=== PATIENT | female | born 1940 | race Caucasian/White ===

== ENCOUNTER → 2016-06-23 | Outpatient (CLI) | payer MEDICARE, OTHER ==
[~2016-06-23] MED LIST: AMLO5TAB2 PO; ASP81TEC PO; BLAC80CA PO; CALC-787 PO; CHOL10003 PO; DIPH-450 PO; E400C PO; FURO40TA4 PO; GLUC-113 PO; HYDR1CAP2 PO; LISI10TA PO; LORA0.5T PO; LVT.088T PO; LVT.1T PO; METF-380 PO; NAPR250T2 PO; OMEG-12 PO; PRAV80TA2 PO; SIMV40TA4 PO; TRAM50TA2 PO; UBID100C17 PO; [UNRECOGNIZED DRUG - OTHER]
--- NOTE | 2016-06-25 16:17 | ECHOCARDIOGRAPHY REPORT ---
PROCEDURE PHYSICIAN: NELSY OBRIEN DATE OF PROCEDURE: 06/23/2016 TWO DIMENSIONAL ECHOCARDIOGRAM REPORT PRIMARY PHYSICIAN: OTHER PHYSICIAN: REFERRING PHYSICIAN: Dr. Schmidt and CELINA Novak ORDERING PHYSICIAN: INDICATION FOR THE PROCEDURE: Coronary artery disease. MEASUREMENTS DERIVED VALUES LV DIAMETER (LAX) NORMALS NORMALS Diastolic 4.1 (3.6-5.2) Eject. Fract. 50% (60%+/-6%) Systolic (2.3-3.9) Diastolic Vol. % Shortening (0.22-0.42) Systolic Vol. Aortic Root IVS THICKNESS Diastolic 1.2 (0.6-1.1) LVPW THICKNESS Diastolic 1.2 (0.6-1.1) LA DIAMETER Systolic 3.5 (2.1-3.7) FINDINGS: 1. Technically poor quality study. 2. The left ventricle is normal in size. Endocardium was not well visualized in all segments. Systolic function appeared to be preserved with estimated ejection fraction 50%. Cannot comment on segmental wall motion. 3. The left atrium appeared to be normal size, the previous study in 2014 showed a large left atrium. 4. The right atrium and right ventricle were not well visualized on this study. 5. Mitral valve is normal in morphology with mild mitral regurgitation noted by color Doppler flow. No mitral valve prolapse or stenosis. 6. Aortic valve was not well visualized. There is no significant aortic stenosis or regurgitation seen. 7. Tricuspid valve is normal in morphology with mild tricuspid regurgitation noted by color Doppler flow. Doppler across tricuspid valve estimated pulmonary artery pressure of 19+ right atrial pressure. 8. Pulmonic valve is functioning normally. 9. No pericardial effusion. IN CONCLUSION: 1. Normal left ventricular size, endocardium was not well visualized in all segments. Overall, systolic function appeared to be preserved with estimated ejection fraction of 50%. 2. Mild mitral and tricuspid regurgitation. 3. Estimated pulmonary artery pressure of 25 mmHg. 4. Overall, it is a suboptimal study. Job ID: [id number] Dictated Date: 06/24/2016 12:46:46 Sales Program Coordinator Date: 06/25/2016 16:14:03 / pamela
== END ==
LOC: CARD 10:03
PROVIDERS: ATTEND Physician Assistant
DX: I25.10 Atherosclerotic heart disease of native coronary artery without angina pectoris (principal); I65.23 Occlusion and stenosis of bilateral carotid arteries; I10 Essential (primary) hypertension; E78.2 Mixed hyperlipidemia
CPT/HCPCS: 93306

== ENCOUNTER → 2016-06-28 | Outpatient (CLI) | payer MEDICARE, OTHER ==
[~2016-06-28] VITALS: Ht 170.2 cm; Wt 105.7 kg
[~2016-06-28] MED LIST changes: +CATHETER FLUSH 10 ML SYR IV PRN; +REGADENOSON 0.4 MG/5 ML SYR (LEXISCAN) IV ONE
[2016-06-28 09:15] VITALS: BP 129/54
[2016-06-28 09:19] VITALS: BP 122/56
--- NOTE | 2016-06-29 08:13 | STRESS TEST ---
PROCEDURE PHYSICIAN: NELSY OBRIEN DATE OF PROCEDURE: 06/28/2016 LEXISCAN AMEYA MYOVIEW STRESS TEST REPORT: REFERRING PHYSICIAN: Dr. Schmidt INDICATION: 1. Coronary artery disease. 2. Hypertension. BASELINE HEART RATE: 66 BASELINE BLOOD PRESSURE: 135/53 BASELINE EKG: Sinus rhythm with no ischemic changes. IN SUMMARY: The patient was injected with 10.28 mCi of technetium 99 Myoview and the resting images were obtained. Then the patient received 0.4 mg of Lexiscan followed by 33 mCi of technetium 99 Myoview. Throughout the test, there were no EKG changes. The resting and stress images were reviewed and compared in the short axis, horizontal long axis, and vertical long axis views. Review of the images showed breast attenuation affecting the quality of the images, there is reversible ischemia involving the mid to apical anterior wall, anterolateral wall and mid to apical inferior wall. SSS is 9, SDS 7, TID value 0.97. On the gated images, the left ventricle appeared to be normal size with normal contractility. Calculated ejection fraction 75%. IN CONCLUSION: 1. The patient tolerated Lexiscan well. 2. Breast attenuation affecting the quality of the images. Reversible ischemia involving the mid to apical anterior wall, anterolateral wall. Reversible ischemia involving the mid to apical inferior wall. 3. Normal left ventricular size with normal contractility. Calculated ejection fraction 75%. Job ID: [id number] Dictated Date: 06/28/2016 16:08:39 Internal Affairs Commander Date: 06/29/2016 08:09:42 / pamela
== END ==
LOC: CARD 07:50
PROVIDERS: ATTEND Physician Assistant
DX: I25.10 Atherosclerotic heart disease of native coronary artery without angina pectoris (principal); I65.23 Occlusion and stenosis of bilateral carotid arteries; I10 Essential (primary) hypertension; E78.2 Mixed hyperlipidemia
CPT/HCPCS: 78452; 93017

== ENCOUNTER 2022-09-13 08:12 | Day surgery (SDC) | payer MEDICARE, OTHER ==
[~2022-09-13] VITALS: Ht 170.2 cm; Wt 98.7 kg
[2022-09-13] VITALS (17 sets, daily range): BP systolic 114–171; BP diastolic 62–117
[~2022-09-13 08:12] MED LIST changes: -CATHETER FLUSH 10 ML SYR IV PRN; -REGADENOSON 0.4 MG/5 ML SYR (LEXISCAN) IV ONE
[2022-09-13] MEDS ORDERED: fentaNYL INJ 100 MCG/2 ML AMP IV ONE ×2 (08:30→09:30)
[2022-09-13] MEDS ORDERED: NS IV 1000 ML 1,000 ML IV SCH (08:30)
[2022-09-13] MEDS ORDERED: MIDAZOLAM 5 MG/5 ML (VERSED) VIAL IV ONE ×2 (08:30→09:30)
[2022-09-13] MEDS ORDERED: LIDOCAINE 2% VISCOUS 15 ML UDC PO ONE ×2 (08:30→09:30)
[2022-09-13] MEDS ORDERED: LIDOCAINE 2% VISCOUS 15 ML UDC ONE (08:43)
[2022-09-13] MEDS ORDERED: NS IV 1000 ML 1,000 ML ONE (08:44)
[2022-09-13 09:12] LABS: BASOPHILS # (AUTO) 0.1 10^3/uL (0.0-0.1); BASOPHILS % (AUTO) 1 % (0-10); EOSINOPHILS # (AUTO) 0.2 10^3/uL (0.0-0.3); EOSINOPHILS % (AUTO) 2 % (0-10); HEMATOCRIT 55 % (35-52); HEMOGLOBIN 17.9 g/dL (11.5-16.0); LYMPHOCYTES # (AUTO) 3.8 10^3/uL (1.0-4.0); LYMPHOCYTES % (AUTO) 33 % (12-44); MEAN CORPUSCULAR HEMOGLOBIN 32 pg (25-34); MEAN CORPUSCULAR HGB CONC 33 g/dL (32-36); MEAN CORPUSCULAR VOLUME 97 fL (80-99); MEAN PLATELET VOLUME 10.1 fL (9.0-12.2); MONOCYTES # (AUTO) 1.3 10^3/uL (0.0-1.0); MONOCYTES % (AUTO) 11 % (0-12); NEUTROPHILS # (AUTO) 6.2 10^3/uL (1.8-7.8); NEUTROPHILS % (AUTO) 54 % (42-75); PLATELET COUNT 335 10^3/uL (130-400); WHITE BLOOD COUNT 11.5 10^3/uL (4.3-11.0)
[2022-09-13 09:13] LABS: BILIRUBIN,URINE NEGATIVE (NEGATIVE); CLARITY,URINE CLEAR; COLOR,URINE YELLOW; GLUCOSE, URINE (UA) 2+ (NEGATIVE); KETONES,URINE NEGATIVE (NEGATIVE); LEUKOCYTE ESTERASE ,URINE NEGATIVE (NEGATIVE); NITRITE,URINE NEGATIVE (NEGATIVE); PROTEIN,URINE TRACE (NEGATIVE)
[2022-09-13 09:18] LABS: BACTERIA,URINE LARGE /HPF; SQUAMOUS EPITHELIAL CELL,UR 0-2 /HPF
[2022-09-13 09:25] LABS: PROTHROMBIN TIME PATIENT 13.5 SEC (12.2-14.7)
--- NOTE | 2022-09-13 09:33 | Diagnostic Imaging Report ---
CLINICAL INDICATION: Transesophageal echocardiogram. EXAM: Portable chest x-ray upright view. COMPARISON: Chest x-ray dated 01/11/2015.. FINDINGS: Lungs/pleura: Lungs are clear. There is no pneumothorax. There is interval development of blunting of both costophrenic angle regions and minimal sized bilateral pleural effusions or pleural thickening may be considered. Mediastinum: Unremarkable. Pulmonary vasculature: Unremarkable. Heart: There is cardiomegaly. A loop recorder is seen overlying the left chest. Bones/extrathoracic soft tissue: There are degenerative spurs involving the thoracic spine. IMPRESSION: 1: Interval development of possible minimal bilateral pleural effusions versus pleural thickening. Otherwise, there is no radiographic evidence of acute cardiopulmonary process. 2: There is cardiomegaly with no significant pulmonary vascular congestion. Dictated by: Dictated on workstation # [id number]
[2022-09-13 09:34] LABS: ALBUMIN 4.1 GM/DL (3.2-4.5); BILIRUBIN,TOTAL 0.5 MG/DL (0.1-1.0); CREATININE SERUM 1.56 MG/DL (0.60-1.30); POTASSIUM 5.1 MMOL/L (3.6-5.0); TOTAL PROTEIN 8.8 GM/DL (6.4-8.2)
[2022-09-13] MEDS ORDERED: MIDAZOLAM 5 MG/5 ML (VERSED) VIAL ONE (09:45)
[2022-09-13] MEDS ORDERED: fentaNYL INJ 100 MCG/2 ML AMP ONE (09:45)
--- NOTE | 2022-09-13 09:59 | Cardiac Procedure Note-CS/ASA ---
Pre-Procedure Note Pre-Op Procedure Note Date of Available H&P: Sep 05, 2022 Date H&P Reviewed: Sep 13, 2022 Time H&P Reviewed: 09:59 History & Physical: H&P Reviewed, Patient Examed, No changes noted Pre-Operative Diagnosis: PAF Moderate Sedation PreProcedure Time 09:59 ASA Score 3 Airway Lungs Heart ASA score ASA 1: a normal healthy patient ASA 2: a patient with a mild systemic disease (mid diabetes, controlled hypertension, obesity ASA 3: a patient with a severe systemic disease that limits activity (angina, COPD, prior Myocardial infarction) ASA 4: a patient with an incapacitating disease that is a constant threat to life (CHF, renal failure) ASA 5: a moribund patient not expected to survive 24 hrs. (ruptured aneurysm) ASA 6: a declared brain- patient whose organs are being harvested. For emergent operations, add the letter E after the classification Mallampati Classification Grade 3 Sedation Plan Analgesia, Amnesia, Plan communicated to team members, Discussed options with patient/fam, Discussed risks with patient/fam The patient is an appropriate candidate to undergo the planned procedure, sedation, and anesthesia. The patient immediately re-assessed prior to indication. NELSY OBRIEN MD Sep 13, 2022 09:59
[2022-09-13] MEDS ORDERED: AMIO200T65 PO (10:02)
[2022-09-13] MEDS ORDERED: FURO40TA4 PO (10:02)
[2022-09-13] MEDS ORDERED: EMPA10TA PO (10:02)
[2022-09-13] MEDS ORDERED: PANT40TA52 PO (10:02)
[2022-09-13] MEDS ORDERED: CLOP75TA28 PO (10:02)
[2022-09-13] MEDS ORDERED: MENT118G TP (10:02)
[2022-09-13] MEDS ORDERED: LEVO137C4 PO (10:02)
[2022-09-13] MEDS ORDERED: CALC-140 PO (10:02)
[2022-09-13] MEDS ORDERED: LATA7.5D OP (10:02)
[2022-09-13] MEDS ORDERED: DULO60CA59 PO (10:02)
[2022-09-13] MEDS ORDERED: CARB10DR5 OP (10:02)
[2022-09-13] MEDS ORDERED: DULA1.5P2 SQ (10:02)
[2022-09-13] MEDS ORDERED: POTA-177 PO (10:02)
[2022-09-13] MEDS ORDERED: GLIP10TA24 PO (10:02)
[2022-09-13] MEDS ORDERED: APIX5TAB PO (10:02)
--- NOTE | 2022-09-13 10:16 | Discharge Inst-Post CATH ---
Discharge Inst-CATH/EP Problems Reviewed?: Yes Post Cardiac Cath/EP D/C Inst Follow Up/Plan Appointment with Dr. Chan's office in 2 to 4 weeks <b>CARDIAC CATH/EP PROCEDURE DISCHARGE INSTRUCTIONS</b> ACTIVITY * Go Home directly and rest. * Limit activity of the leg (or wrist if it was used) for 7 days including aer obics, swimming, jogging, bicycling, etc. * Restrict stair-climbing for 7 days if possible, if not, climb up with your non-cath leg, then bring together on the same step. * Avoid lifting, pushing, pulling or excessive movement of the affected extremi ty for 7 days. * Customary sexual activity may be resumed after 2 days-use caution not to use a position that strains or causes pain to the affected extremity. * No driving for 24 hours. * NO SMOKING. * Avoid straining for bowel movements for 7 days. * Gentle walking on level ground is allowed. * Returning to work will depend on the type of procedure and the results. Your doctor will discuss this with you. CALL YOUR DOCTOR FOR ANY OF THE FOLLOWING: *If bleeding from the puncture site occurs- Apply gentle pressure to site with clean cloth and call your doctor or EMS. * If a knot or lump forms under the skin, increases in size, or causes pain. * If bruising appears to be worsening or moving further down your leg instead of disappearing. * Temperature above 101 F. CARE OF YOUR GROIN INCISION; * Bruising or purple discoloration of the skin near the puncture site is common. * You may shower only, no bathtub bathing for 5 days. Be careful to avoid slipping as your leg may feel stiff. * If a closure device was used on your femoral artery, please see the attached guide regarding care of the device and your leg. * Leave dressing on FOR 24 hours. CARE OF YOUR WRIST INCISION; * Bruising or purple discoloration of the skin near the puncture site is common. * You may shower. * DO NOT submerge wrist. * Leave dressing on FOR 24 hours. NELSY CHAN MD Sep 13, 2022 10:16
== END 2022-09-13 13:18 | disposition home or self-care (01) ==
LOC: CATH 08:12 → SDC 11:29 → CATH 13:18
PROVIDERS: ATTEND Internal Medicine Cardiovascular Disease
DX: I48.0 Paroxysmal atrial fibrillation (principal); I25.10 Atherosclerotic heart disease of native coronary artery without angina pectoris; I10 Essential (primary) hypertension; I65.23 Occlusion and stenosis of bilateral carotid arteries; R07.2 Precordial pain; J44.9 Chronic obstructive pulmonary disease, unspecified; E11.9 Type 2 diabetes mellitus without complications; E78.5 Hyperlipidemia, unspecified; I34.0 Nonrheumatic mitral (valve) insufficiency; I69.359 Hemiplegia and hemiparesis following cerebral infarction affecting unspecified side; R53.1 Weakness; R53.83 Other fatigue; Z87.891 Personal history of nicotine dependence; Z79.899 Other long term (current) drug therapy; Z79.84 Long term (current) use of oral hypoglycemic drugs; Z79.85 Long-term (current) use of injectable non-insulin antidiabetic drugs; Z79.01 Long term (current) use of anticoagulants
CPT/HCPCS: 36415; 71045; 80053; 80061; 81000; 84443; 85025; 85610; 87077; 87081; 87088; 87186; 93005; 93312

== ENCOUNTER → 2022-11-27 | Outpatient (CLI) | payer MEDICARE ==
[~2022-11-27] VITALS: Ht 170 cm; Wt 95.0 kg
[~2022-11-27] MED LIST changes: +AMIO200T65 PO; +APIX5TAB PO; +CALC-140 PO; +CARB10DR5 OP; +CATHETER FLUSH 10 ML SYR IVP PRN; +CLOP75TA28 PO; +DULA1.5P2 SQ; +DULO60CA59 PO; +EMPA10TA PO; +GLIP10TA24 PO; +LATA7.5D OP; +LEVO137C4 PO; +MENT118G TP; +PANT40TA52 PO; +POTA-177 PO; +REGADENOSON 0.4 MG/5 ML SYR (LEXISCAN) IV ONE
[2022-11-27 09:21] VITALS: BP 149/78
--- NOTE | 2022-11-27 12:10 | Cardiology Stress Test Report ---
Stress Test Report Date of Procedure/Referring: Date of Procedure: Nov 27, 2022 PCP Danica Yin MD Admitting Physician Admitting Physician: Attending Physician: Nelsy Chan MD Baseline Heart Rate: 67 Baseline Blood Pressure: Blood Pressure Systolic: 149 Blood Pressure Diastolic: 78 Baseline Vitals Vital Signs Date Time Temp Pulse Resp B/P (MAP) Pulse Ox O2 Delivery O2 Flow Rate FiO2 11/27/22 09:21 67 149/78 (101) Baseline EKG: Baseline EKG: NSR Summary After explaining the procedure to the patient, she signed a consent and then brought to the stress nuclear laboratory. Patient received 0.4 mg Lexiscan for stress test, ECG, heart rate and blood pressure were monitored continuously. Resting and stress dose of radio tracer w ere injected, imaging was acquired and reviewed in short axis, horizontal long axis and vertical long axis views. TID: 1.19 SSS: 8 SDS: 8 EF: 66 Patient tolerated Lexiscan well Breast attenuation with reversible ischemia involving the anterior wall and anterior lateral wall Normal left ventricular size, ejection fraction 66% Copy Copies To 1: [facility] [place] NELSY CHAN MD Nov 27, 2022 12:10
== END ==
LOC: CARD 07:50
PROVIDERS: ATTEND Internal Medicine Cardiovascular Disease
DX: I25.10 Atherosclerotic heart disease of native coronary artery without angina pectoris (principal); I10 Essential (primary) hypertension
CPT/HCPCS: 78452; 93017; A9502

== ENCOUNTER 2022-12-06 06:48 | Day surgery (SDC) | payer MEDICARE ==
[2022-12-06] VITALS (10 sets, daily range): BP systolic 105–148; BP diastolic 53–93
[~2022-12-06] VITALS: Ht 170.2 cm; Wt 95.3 kg
[~2022-12-06 06:48] MED LIST changes: -CATHETER FLUSH 10 ML SYR IVP PRN; -REGADENOSON 0.4 MG/5 ML SYR (LEXISCAN) IV ONE
[2022-12-06] MEDS ORDERED: NS IV 1000 ML 1,000 ML IV SCH ×2 (07:00→08:45)
[2022-12-06] MEDS ORDERED: LIDOCAINE 1% INJ 20 ML VIAL ONE (07:01)
[2022-12-06] MEDS ORDERED: HEParin (CATH LAB) 2,000 ML IV ONE (07:01)
[2022-12-06] MEDS ORDERED: NS IV 1000 ML 1,000 ML ONE (07:01)
[2022-12-06 07:29] LABS: HEMATOCRIT 53 % (35-52); HEMOGLOBIN 17.4 g/dL (11.5-16.0); MEAN CORPUSCULAR HEMOGLOBIN 32 pg (25-34); MEAN CORPUSCULAR HGB CONC 33 g/dL (32-36); MEAN CORPUSCULAR VOLUME 97 fL (80-99); MEAN PLATELET VOLUME 10.2 fL (9.0-12.2); PLATELET COUNT 339 10^3/uL (130-400); WHITE BLOOD COUNT 10.5 10^3/uL (4.3-11.0)
[2022-12-06 07:31] LABS: BILIRUBIN,URINE NEGATIVE (NEGATIVE); CLARITY,URINE CLEAR; COLOR,URINE YELLOW; GLUCOSE, URINE (UA) 3+ (NEGATIVE); KETONES,URINE NEGATIVE (NEGATIVE); LEUKOCYTE ESTERASE ,URINE NEGATIVE (NEGATIVE); NITRITE,URINE NEGATIVE (NEGATIVE); PROTEIN,URINE NEGATIVE (NEGATIVE)
[2022-12-06] MEDS ORDERED: VERAPAMIL 5 MG/2 ML (CALAN) VIAL IV ONE (07:36)
[2022-12-06] MEDS ORDERED: fentaNYL INJ 100 MCG/2 ML AMP ONE (07:36)
[2022-12-06] MEDS ORDERED: NITRO DRIP 25000 MCG/D5W 0 ML IV ONE (07:36)
[2022-12-06] MEDS ORDERED: MIDAZOLAM 5 MG/5 ML (VERSED) VIAL ONE (07:36)
[2022-12-06] MEDS ORDERED: HEParin 1000 UNIT/ML (10ML VIAL) FOR BOLUS ONE (07:36)
[2022-12-06 07:55] LABS: PROTHROMBIN TIME PATIENT 13.1 SEC (12.2-14.7)
[2022-12-06 07:56] LABS: ALBUMIN 4.1 GM/DL (3.2-4.5); BILIRUBIN,TOTAL 0.8 MG/DL (0.1-1.0); CREATININE SERUM 1.71 MG/DL (0.60-1.30); POTASSIUM 3.6 MMOL/L (3.6-5.0); TOTAL PROTEIN 8.1 GM/DL (6.4-8.2)
[2022-12-06 07:59] LABS: BACTERIA,URINE LARGE /HPF; SQUAMOUS EPITHELIAL CELL,UR 0-2 /HPF; WBC,URINE 0-2 /HPF
--- NOTE | 2022-12-06 07:59 | Cardiac Procedure Note-CS/ASA ---
Pre-Procedure Note Pre-Op Procedure Note Date of Available H&P: Nov 28, 2022 Date H&P Reviewed: Dec 06, 2022 Time H&P Reviewed: 07:59 History & Physical: H&P Reviewed, Patient Examed, No changes noted Pre-Operative Diagnosis: CAD Moderate Sedation PreProcedure Time 07:59 ASA Score 3 Airway Lungs Heart ASA score ASA 1: a normal healthy patient ASA 2: a patient with a mild systemic disease (mid diabetes, controlled hypertension, obesity ASA 3: a patient with a severe systemic disease that limits activity (angina, COPD, prior Myocardial infarction) ASA 4: a patient with an incapacitating disease that is a constant threat to life (CHF, renal failure) ASA 5: a moribund patient not expected to survive 24 hrs. (ruptured aneurysm) ASA 6: a declared brain- patient whose organs are being harvested. For emergent operations, add the letter E after the classification Mallampati Classification Grade 3 Sedation Plan Analgesia, Amnesia, Plan communicated to team members, Discussed options with patient/fam, Discussed risks with patient/fam The patient is an appropriate candidate to undergo the planned procedure, sedation, and anesthesia. The patient immediately re-assessed prior to indication. NELSY OBRIEN MD Dec 06, 2022 07:59
[2022-12-06 08:00] LABS: YEAST,URINE FEW /HPF
--- NOTE | 2022-12-06 08:03 | Diagnostic Imaging Report ---
INDICATION: Cardiac catheterization. It is compared with exam performed 09/13/2022. FINDINGS: Prior small pleural effusions have resolved. The heart size stable. The lungs clear. No effusion or pneumothorax. IMPRESSION: No acute appearing abnormality Dictated by: Dictated on workstation # [id number]
[2022-12-06] MEDS ORDERED: POTA-177 PO (08:21)
[2022-12-06] MEDS ORDERED: HYDR-700 PO (08:21)
[2022-12-06] MEDS ORDERED: LEVO150C4 PO (08:21)
[2022-12-06] MEDS ORDERED: CALC-140 PO (08:21)
[2022-12-06] MEDS ORDERED: EVOL140P3 SQ (08:21)
[2022-12-06] MEDS ORDERED: DULO30CA49 PO (08:21)
[2022-12-06] MEDS ORDERED: MENT118G TP (08:21)
[2022-12-06] MEDS ORDERED: PANT40TA52 PO (08:21)
[2022-12-06] MEDS ORDERED: DOCU-164 PO (08:21)
[2022-12-06] MEDS ORDERED: FURO40TA4 PO (08:21)
[2022-12-06] MEDS ORDERED: AMIO200T65 PO (08:21)
[2022-12-06] MEDS ORDERED: POLY1DRO OP (08:21)
[2022-12-06] MEDS ORDERED: DULO60CA59 PO (08:21)
[2022-12-06] MEDS ORDERED: GLIP10TA24 PO (08:21)
[2022-12-06] MEDS ORDERED: DULA1.5P2 SQ (08:21)
[2022-12-06] MEDS ORDERED: CLOP75TA28 PO (08:21)
[2022-12-06] MEDS ORDERED: EMPA10TA PO (08:21)
--- NOTE | 2022-12-06 08:43 | Discharge Inst-Post CATH ---
Discharge Inst-CATH/EP Problems Reviewed?: Yes Post Cardiac Cath/EP D/C Inst Follow Up/Plan Appointment with Dr. Chan's office in 2 to 4 weeks <b>CARDIAC CATH/EP PROCEDURE DISCHARGE INSTRUCTIONS</b> ACTIVITY * Go Home directly and rest. * Limit activity of the leg (or wrist if it was used) for 7 days including aer obics, swimming, jogging, bicycling, etc. * Restrict stair-climbing for 7 days if possible, if not, climb up with your non-cath leg, then bring together on the same step. * Avoid lifting, pushing, pulling or excessive movement of the affected extremi ty for 7 days. * Customary sexual activity may be resumed after 2 days-use caution not to use a position that strains or causes pain to the affected extremity. * No driving for 24 hours. * NO SMOKING. * Avoid straining for bowel movements for 7 days. * Gentle walking on level ground is allowed. * Returning to work will depend on the type of procedure and the results. Your doctor will discuss this with you. CALL YOUR DOCTOR FOR ANY OF THE FOLLOWING: *If bleeding from the puncture site occurs- Apply gentle pressure to site with clean cloth and call your doctor or EMS. * If a knot or lump forms under the skin, increases in size, or causes pain. * If bruising appears to be worsening or moving further down your leg instead of disappearing. * Temperature above 101 F. CARE OF YOUR GROIN INCISION; * Bruising or purple discoloration of the skin near the puncture site is common. * You may shower only, no bathtub bathing for 5 days. Be careful to avoid slipping as your leg may feel stiff. * If a closure device was used on your femoral artery, please see the attached guide regarding care of the device and your leg. * Leave dressing on FOR 24 hours. CARE OF YOUR WRIST INCISION; * Bruising or purple discoloration of the skin near the puncture site is common. * You may shower. * DO NOT submerge wrist. * Leave dressing on FOR 24 hours. NELSY CHAN MD Dec 06, 2022 08:43
[2022-12-06] MEDS ORDERED: PATIENT MAY USE OWN MEDS, ALL PO SCH (08:45)
--- NOTE | 2022-12-06 08:47 | Cardiac Cath Report ---
Cardiac Cath Report Physician (s)/Emergency Room Clerk (s) Physician NELSY OBRIEN MD Pre-Procedure Diagnosis Pre-Procedure Diagnosis: CAD Post-Procedure Note Procedure Start Date: Dec 06, 2022 Name of Procedure: Left heart catheterization Findings/Procedure Note PROCEDURE NOTE: 82-year-old lady with history of coronary artery disease, paroxysmal atrial fibrillation, had an abnormal stress test, scheduled for cardiac catheterization possible PTCA. After explaining the procedure to the patient, all pros and cons were explained, all questions were answered. The patient signed the consent and then she was placed in the cardiac catheterization laboratory. Groin was prepped in SL fashion local anesthesia was used. I accessed with a needle to the right radial artery, advanced the wire without difficulty after placement of the sheath patie nt was in significant pain and I did not have a blood return I removed the sheath and held manual pressure then proceeded with placement of the sheath in the right groin, Kraig left was advanced to the left coronary system and angiogram was done then Kraig right was advanced to the left ventricular cavity, pressure was measured, pullback LV to aorta was done, engage the right c oronary system, angiogram was done. At the end of the procedure the sheath was removed. Closure device was deployed FINDINGS: Hemodynamics LV 135/8, end-diastolic pressure of 8 Aorta 135/64 mean of 66 ANATOMY: Left Main is free of obstructive disease Left Anterior Descending is tortuous artery with small vessel disease slow flow nonobstructive disease Left Circumflex is nondominant artery with slow flow due to small vessel disease nonobstructive disease Right Coronary Artery is large dominant artery with slow flow due to small vessel disease nonobstructive disease LV Gram was not done, pressure was measured CONCLUSION: Dominant right coronary system with slow flow in the coronary system due to small vessel disease nonobstructive disease Normal left ventricular end-diastolic pressure DISCUSSION AND RECOMMENDATION: Continue to maximize medical therapy. No intervention is warranted Anesthesia Type: Conscious Sedation Estimated blood loss (mL): 10 ml Contrast Amount: 22 ml Total Radiation Dose: 564 mGy Post-Procedure Diagnosis Post-operative diagnosis: Coronary artery disease Paroxysmal atrial fibrillation Hypertension Hyperlipidemia NELSY OBRIEN MD Dec 06, 2022 08:47
== END 2022-12-06 13:05 | disposition home or self-care (01) ==
LOC: CATH 06:48 → SDC 09:09 → CATH 13:05
PROVIDERS: ATTEND Internal Medicine Cardiovascular Disease
DX: I25.10 Atherosclerotic heart disease of native coronary artery without angina pectoris (principal); I48.0 Paroxysmal atrial fibrillation; I10 Essential (primary) hypertension; E78.2 Mixed hyperlipidemia; E03.9 Hypothyroidism, unspecified; I65.23 Occlusion and stenosis of bilateral carotid arteries; Z79.890 Hormone replacement therapy; Z79.899 Other long term (current) drug therapy
CPT/HCPCS: 71045; 80053; 81000; 85027; 85610; 85730; 87077; 87081; 87088; 93005; 93458; C1760; C1894 ×2; 36415; 87186

== ENCOUNTER → 2023-04-10 | Outpatient (CLI) | payer MEDICARE, MEDICAID ==
[~2023-04-10] MED LIST changes: +DOCU-164 PO; +DULO30CA49 PO; +EVOL140P3 SQ; +HYDR-700 PO; +LEVO150C4 PO; +POLY1DRO OP
--- NOTE | 2023-04-10 15:05 | Diagnostic Imaging Report ---
INDICATION: Postmenopausal screening. COMPARISON: None. FINDINGS: AP Spine L1-L4: [BMD (g/cm2): 1.112] [T-Score: -0.7] [Z-Score: 0.0] [BMD Previous: na] [BMD % Change: na] LT Hip Neck: [BMD (g/cm2): 0.706] [T-Score: -2.4] [Z-Score: -0.9] LT Hip Total: [BMD (g/cm2):0.868] [T-Score:-1.1] [Z-Score: 0.2] [BMD Previous: na] [BMD % Change: na] RT Hip Neck: [BMD (g/cm2):0.807] [T-Score:-1.7] [Z-Score:-0.2] RT Hip Total: [BMD (g/cm2):0.891] [T-score:-0.9] [Z-Score:0.4] [BMD Previous:na] [BMD % Change:na] *Indicates significant change from prior examination based on 95% confidence level. World Health Organization criteria for BMD interpretation classify patients as Normal (T-score at or above -1.0), Osteopenic (T-score between -1.0 and -2.5) or Osteoporotic (T-score at or below -2.5). LIMITATIONS AND MODIFICATION: None. FRACTURE RISK (FRAX SCORE): The ten year probability of (%): Major Osteoporotic Fracture: [41.4] Hip Fracture: [30.2] IMPRESSION: 1. Osteopenia (Low bone mass). 2. Baseline examination. 3. See below National Osteoporosis Foundation guidelines on when to potentially initiate pharmacologic therapy. Based on the National Osteoporosis Foundation Guidelines, pharmacologic treatment should be initiated in any of the following, unless clinical conditions suggest otherwise: * Any patient with prior fragility fracture of the hip or vertebrae. A spine fracture indicates 5X risk for subsequent spine fracture and 2X risk for subsequent hip fracture. * Osteoporosis (T-score <-2.5). * Postmenopausal women and men age 50 and older with low bone mass/osteopenia (T-score between -1.0 and -2.5) by DXA and 10-year major osteoporotic fracture greater than 20% or a 10-year probability of hip fracture greater than 3%. These fracture risks are supplied above in the FRAX score, if applicable. * Clinician judgement and/or patient preferences may indicate treatment for people with 10-year fracture probabilities above or below these levels. Dictated by: Dictated on workstation # [id number]
== END ==
LOC: RAD 12:48
PROVIDERS: ATTEND Family Medicine
DX: M85.80 Other specified disorders of bone density and structure, unspecified site (principal); Z78.0 Asymptomatic menopausal state
CPT/HCPCS: 77080